=== PATIENT | male | born 1980 | race Caucasian/White ===

== ENCOUNTER 2017-10-29 15:23 | Emergency (ER) | payer OTHER ==
[~2017-10-29] VITALS: Ht 172.7 cm; Wt 88.0 kg
[~2017-10-29 15:23] MED LIST: ATIVAN2 MG PO; Folvite PO; NEXIUM40 MG PO; Protonix PO; THIAMINE HCL100 MG PO; Thiamine,Vitamin B1 PO
[2017-10-29 16:08] VITALS: BP 144/96
== END 2017-10-29 16:08 ==
LOC: EME 15:23
DX: F10.129 Alcohol abuse with intoxication, unspecified (principal)
CPT/HCPCS: 99281; 99282

== ENCOUNTER 2017-10-31 01:57 | Emergency (ER) | payer OTHER ==
[~2017-10-31] VITALS: Ht 177.8 cm; Wt 83.5 kg
[2017-10-31] MEDS ORDERED: B-1100 MG PO (09:11)
[2017-10-31] MEDS ORDERED: LIBRIUM25 MG PO (09:11)
[2017-10-31 10:26] VITALS: BP 110/74
== END 2017-10-31 10:32 | disposition home or self-care (01) ==
LOC: EME 01:57
DX: F10.129 Alcohol abuse with intoxication, unspecified (principal)
CPT/HCPCS: 70450; 99281; 99284